=== PATIENT | male | born 1990 | race Caucasian/White ===

== ENCOUNTER 2022-01-13 12:26 | Emergency (ER) | payer OTHER, SELFPAY ==
[2022-01-13] MEDS ORDERED: HYDROcodone/Acetaminophen 5/325 mg Tablet ONE (13:05)
[2022-01-13] MEDS ORDERED: Lidocaine 1% (PF) 30 ML VIAL ONE (14:35)
[2022-01-13] MEDS ORDERED: Boostrix 0.5 ML (Tdap) VIAL ONE (15:14)
[2022-01-13] MEDS ORDERED: Bacitracin 1 PK ONE (15:39)
== END 2022-01-13 15:52 | disposition home or self-care (01) ==
LOC: ERS 12:26
DX: S61.412A Laceration without foreign body of left hand, initial encounter (principal); M25.551 Pain in right hip; J45.909 Unspecified asthma, uncomplicated; F17.210 Nicotine dependence, cigarettes, uncomplicated; W17.89XA Other fall from one level to another, initial encounter; Y92.59 Other trade areas as the place of occurrence of the external cause; Z23 Encounter for immunization
CPT/HCPCS: 12001; 72131; 72192; 90471; 90715; J2001

== ENCOUNTER 2022-04-05 10:50 | Emergency (ER) | payer OTHER, SELFPAY | END 2022-04-05 12:34 | disposition home or self-care (01) | LOC: ERS 10:50 | DX: S20.211A Contusion of right front wall of thorax, initial encounter (principal); J45.909 Unspecified asthma, uncomplicated; F17.210 Nicotine dependence, cigarettes, uncomplicated; W17.89XA Other fall from one level to another, initial encounter; Y92.69 Other specified industrial and construction area as the place of occurrence of the external cause | CPT/HCPCS: 71046 ==